=== PATIENT | female | born 2000 | race Caucasian/White ===

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

== ENCOUNTER 2020-08-19 20:10 | Emergency (ER) | payer OTHER ==
[2020-08-19 20:40] LABS: Bilirubin Negative (Negative); Blood, Urine Negative (Negative); Clarity Clear (Clear); Glucose, Urine (Dipstick) Negative (Negative); Ketone, Urine Trace mg/dL (Negative); Leukocyte Negative (Negative); Nitrite Negative (Negative); Protein, Urine (Dipstick) Negative (Neg-Trace); Specific Gravity, Urine 1.025 (1.005-1.030); Urobilinogen 0.2 mg/dL (Less than 2)
[2020-08-19 20:41] LABS: Pregnancy Test - Urine (BHCG) Negative (Negative)
[2020-08-19 20:42] LABS: Pregu Control Background? CLEAR/WHITE (CLR/WHITE); Pregu Control Bar Appear? YES (CONTROL BAR); Specific Gravity 1.025 (1.002-1.036)
[2020-08-19] MEDS ORDERED: Ketorolac Tromethamine 30 MG/ML VIAL ONE (21:13)
== END 2020-08-19 22:03 | disposition home or self-care (01) ==
LOC: MADERS 20:10
DX: M54.5 Low back pain (principal); R11.2 Nausea with vomiting, unspecified; Z79.899 Other long term (current) drug therapy
CPT/HCPCS: 81003; 81025; 96372; 99283; J1885

== ENCOUNTER 2020-09-06 20:27 | Emergency (ER) | payer OTHER ==
[2020-09-06] MEDS ORDERED: Sodium Chloride 0.9% 1,000 ML ONE (21:23)
[2020-09-06] MEDS ORDERED: Ondansetron PF 4 MG/2 ML Vial ONE (21:23)
[2020-09-06 21:37] LABS: Hemoglobin 14.7 g/dL (12.0-16.0); Mean Corpuscular HGB CONC 33.1 g/dL (32.0-36.0); Mean Corpuscular Hemoglobin 27.2 pg (25.0-35.0); Mean Corpuscular Volume 82.2 fL (78.0-98.0); Mean Platelet Volume 7.3 fL (7.4-10.4); Platelet Count 246 thou/uL (130-400); RBC Distribution Width 10.9 % (11.5-14.5); White Blood Cell (WBC) Count 7.6 thou/uL (4.8-10.8)
[2020-09-06 21:45] LABS: ALT (SGPT) 17 U/L (8-55); AST (SGOT) 15 U/L (5-30); Albumin 4.5 g/dL (3.5-5.0); Alkaline Phosphatase 64 U/L (40-100); Anion Gap 18 mmol/L (10-20); BUN (Urea Nitrogen) 13 mg/dL (8.4-21.0); Bilirubin, Total 0.6 mg/dL (0.2-1.2); Calc. Creatinine Clearance 0 mL/min (70-130); Calcium 8.8 mg/dL (7.8-10.44); Carbon Dioxide 23 mmol/L (22-29); Chloride 102 mmol/L (98-107); Globulin 3.1 g/dL (2.4-3.5); Glucose 125 mg/dL (70-105); Potassium 3.5 mmol/L (3.5-5.1); Protein, Total 7.6 g/dL (6.0-8.3); Sodium 139 mmol/L (136-145)
[2020-09-06 21:53] LABS: BHCG - Serum Negative (NEGATIVE); Lymphocytes 10 % (28-48); MDiff Complete? YES; Monocytes 8 % (0-4); Neutrophil 82 % (31-61); Platelet Morphology Comment Appears Adequate; Pregs Control Background? CLEAR/WHITE (CLR/WHITE); Pregs Control Bar Appear? YES (CONTROL BAR); RBC Morphology Normal
== END 2020-09-06 22:48 | disposition home or self-care (01) ==
LOC: MADERS 20:27
DX: K52.9 Noninfective gastroenteritis and colitis, unspecified (principal)
CPT/HCPCS: 80053; 83605; 84703; 85025; 96374; J2405; J7050

== ENCOUNTER 2022-02-16 03:11 | Emergency (ER) | payer OTHER ==
[2022-02-16] MEDS ORDERED: Ketorolac Tromethamine 30 MG/ML VIAL ONE (03:38)
[2022-02-16] MEDS ORDERED: Sodium Chloride 0.9% 1,000 ML ONE (03:38)
[2022-02-16] MEDS ORDERED: Metoclopramide HCl 10 MG/2 ML VIAL ONE (03:38)
== END 2022-02-16 05:25 | disposition home or self-care (01) ==
LOC: MADERS 03:11
DX: R51.9 Headache, unspecified (principal); J06.9 Acute upper respiratory infection, unspecified
CPT/HCPCS: 96374; 96375; J1885; J2765; J7050

== ENCOUNTER 2022-10-31 10:52 | Emergency (ER) | payer BC, OTHER | END 2022-10-31 12:19 | disposition home or self-care (01) | LOC: MADERS 10:52 | DX: J02.9 Acute pharyngitis, unspecified (principal) | CPT/HCPCS: 87081; 87430; 99283 ==